=== PATIENT | female | born 1975 | race Two or more races ===

== ENCOUNTER 2018-06-25 22:57 | Emergency (ER) | payer OTHER ==
[~2018-06-25] VITALS: Ht 157.5 cm; Wt 52.2 kg
[2018-06-25] MEDS ORDERED: ADVIL100 M1 (23:45)
[2018-06-26] MEDS ORDERED: ALBUTEROL2.5 MG/3 M IH (07:57)
[2018-06-26] MEDS ORDERED: ZYNCOF 20-400120 ML PO (07:57)
[2018-06-26] MEDS ORDERED: QVAR REDIHALE10.6 G1 IH (07:57)
== END 2018-06-26 08:10 | disposition home or self-care (01) ==
LOC: ER 22:57
DX: J40 Bronchitis, not specified as acute or chronic (principal)

== ENCOUNTER 2023-04-09 19:21 | Emergency (ER) | payer OTHER ==
[~2023-04-09] VITALS: Ht 180.3 cm; Wt 50.8 kg
[~2023-04-09 19:21] MED LIST: ADVIL100 M1; ALBUTEROL2.5 MG/3 M IH; QVAR REDIHALE10.6 G1 IH; ZYNCOF 20-400120 ML PO
== END 2023-04-09 20:46 | disposition home or self-care (01) ==
LOC: ER 19:21
DX: M25.512 Pain in left shoulder (principal)